=== PATIENT | male | born 1980 | race Caucasian/White ===

== ENCOUNTER → 2019-02-03 | Day surgery (SDC) | payer MEDICARE ==
[~2019-02-03] MED LIST: BUPIVACAINE 0.25% 30ML SDV INJ ONE; BUPIVACAINE HCL 0.5% INJ 30 ML VIAL INJ ONE; LEVOTHYROXINE75 MCG PO; LEXAPRO10 MG PO; METHADONE HCL10 MG PO; POTASSIUM CHLO20 ME1 PO; REXULTI PO
--- OUTSIDE RECORDS SUMMARY | 2019-02-03 10:52 | XMS REPORT ---
Author Author [facility] Address Unknown Phone Unavailable Care Team Providers Care Microbiological Laboratory Technician Name Role Phone Unavailable Unavailable Payers Payer Name Policy Type Policy Number Effective Date Expiration Date Problems This patient has no known problems. Allergies, Adverse Reactions, Alerts Allergy Name Allergy Type Status Severity Reaction(s) Onset Date Inactive Date Treating Clinician Comments No Known Allergies DA Active U 2012-02-27 00:00:00 Medications This patient has no known medications. Results Test Description Test Time Test Comments Text Results Atomic Results Result Comments - US ABDOMEN LTD 2019-01-27 11:08:00 Name: GUILLERMO ARMENTA [facility] : 1980 Age/S: 38 / M [address] [place] [address] Unit #: [id number] Loc: [place] [address] Phys: Zelalem Toscano MD Acct: [id number] Dis Date: Status: REG CLI PHONE #: [phone] Exam Date: 01/27/2019 1048 FAX #: [phone] Reason: R10.13 EPIGASTRIC PAIN EXAMS: CPT CODE: [id number] US ABDOMEN LTD [id number] Patient: GUILLERMO ARMENTA. : 1980; Age: 38 years; Gender: Male. MR: [id number]. Ordering physician: Zelalem Toscano MD. PROCEDURE: LIMITED ABDOMINAL ULTRASOUND. INDICATION: Epigastric abdominal pain for 3 weeks. COMPARISON: None. TECHNIQUE: Sonographic evaluation of the right upper quadrant of the abdomen was performed with supplemental color Doppler. FINDINGS: LIVER: The liver is normal in size, contour and morphology with normal parenchymal echogenicity. GALLBLADDER: Gallbladder is distended with sludge and gallstones. No gallbladder wall thickening, pericholecystic fluid/edema or sonographic Bauer's sign. BILE DUCTS: No biliary dilatation. The common duct measures 7.1 mm. PANCREAS: The visualized pancreas appears normal. RIGHT KIDNEY: The right kidney measures 11.3 cm in length. Normal contour and parenchymal echogenicity. There is no hydronephrosis, nephrolithiasis, mass lesion or perinephric collection. INFERIOR VENA CAVA: Visualized portions appear normal. Additional comments: None. IMPRESSION: 1. Gallbladder is distended with sludge and gallstones. No evidence of acute cholecystitis. 2. Remainder right upper quadrant is unremarkable. SL: [id number] PAGE 1 Signed Report (CONTINUED) Name: GUILLERMO ARMENTA [facility] : 1980 Age/S: 38 / M [address] [place] [address] Bl Unit #: [id number] Loc: [place] [address] Phys: Zelalem Toscano MD Acct: [id number] Dis Date: Status: REG CLI PHONE #: [phone] Exam Date: 01/27/2019 1048 FAX #: [phone] Reason: R10.13 EPIGASTRIC PAIN EXAMS: CPT CODE: [id number] ABDOMEN [facility] [id number] <Continued> at 1108 Reported and signed by: Nimesh Haro M.D. CC: Aubrey Toney MD; Zelalem Toscano MD Technologist: Janice Moreno RDMS(BR)(AB) Trnscb Date/Time: 01/27/2019 (1108) [id number] Orig Print D/T: S: 01/27/2019 (1111) Probe: PAGE 2 Signed Report
[2019-02-03 12:11] LABS: BASOPHILS % 0.3 % (0.0-1.0); EOSINOPHILS # (AUTO) 0.1 (0.0-0.4); EOSINOPHILS % 1.7 % (0.0-6.0); HEMATOCRIT 31.8 % (38.2-49.6); HEMOGLOBIN 10.1 g/dL (14.0-18.0); LYMPHOCYTES % 25.8 % (18.0-39.1); MEAN CORPUSCULAR HEMOGLOBIN 33.3 pg (28-32); MEAN CORPUSCULAR HGB CONC 31.8 g/dL (31-35); MONOCYTES # (AUTO) 0.5 (0.2-0.8); NEUTROPHILS # (AUTO) 5.1 (2.1-6.9); NEUTROPHILS % 65.7 % (38.7-80.0); PLATELET COUNT 203 x10e3/uL (140-360); RED BLOOD COUNT 3.03 x10e6/uL (4.3-5.7); RED CELL DISTRIBUTION WIDTH 15.3 % (11.7-14.4)
[2019-02-03 12:34] LABS: ANION GAP 11.5 mmol/L (8-16); CALCIUM 8.5 mg/dL (8.4-10.2); CREATININE, SERUM 1.36 mg/dL (0.72-1.25)
[2019-02-03 12:43] LABS: POTASSIUM 2.5 mmol/L (3.5-5.1)
== END | disposition home or self-care (01) ==
LOC: OR 10:50
PROVIDERS: ATTEND Surgery
DX: Z53.9 Procedure and treatment not carried out, unspecified reason (principal); K81.1 Chronic cholecystitis
CPT/HCPCS: 36415; 80048; 85025

== ENCOUNTER → 2019-02-17 | Day surgery (SDC) | payer MEDICARE ==
[~2019-02-17] MED LIST changes: -BUPIVACAINE HCL 0.5% INJ 30 ML VIAL INJ ONE; +DEXAMETHASONE SOD PHOS INJ 4 MG/ML VIAL ONE; +FENTANYL CITRATE/PF 100MCG/2 ML INJ ONE; +HYDROMORPHONE 2MG/ML 2 MG/ML ML ONE; +LEXAPRO20 MG PO; +LIDOCAINE HCL 2% JELLY 5 ML TUBE ONE; +LIDOCAINE HCL 2% LOCAL INJ 5 ML SDV VIAL INJ ONE; +MIDAZOLAM HCL 2 MG/2 ML VIAL ONE; +ONDANSETRON HCL INJ 2MG/ML 2ML 2 MG/ML VIAL ONE; +PROPOFOL IV EMULSION 10 MG/ML 20 ML VIAL ONE; +ROCURONIUM BROMIDE 10 MG/ML 5ML VIAL ONE; +SEVOFLURANE INHAL SOLN 250 ML PEN BTL ONE; +SODIUM CHLORIDE 0.9% INJ 10 ML VIAL ONE; +SPIRONOLACTONE25 MG PO
[2019-02-17 14:20] VITALS: BP 124/74
--- NOTE | 2019-02-17 15:39 | Operative Report ---
DATE OF PROCEDURE: 02/17/2019 SURGEON: Zelalem Toscano MD PREOPERATIVE DIAGNOSIS: Chronic cholecystitis. POSTOPERATIVE DIAGNOSIS: Chronic cholecystitis. PREOPERATIVE INDICATION: Treat disease, prevent biliary related complications. PROCEDURES: 1. Laparoscopic cholecystectomy. 2. Application of human connective tissue allograft to augment damaged tissues (CPT 35550, product code [id number]). ANESTHESIA: General. GEOTHERMAL INSTALLER: Joel Javier, surgical services asst (needed due to complexity of case). FLUIDS: 500 mL of crystalloid. EBL: 30 mL. DRAINS: None. COMPLICATIONS: None. SPECIMEN: Gallbladder. GRAFTS: Connective tissue allograft on the incision sites. FINDINGS: Gallbladder wall thickening, chronic gallbladder inflammation. PROCEDURE IN DETAIL: The patient was brought to the operating room and was intubated under general endotracheal anesthesia. He was sterilely prepped and draped in the usual fashion. A preprocedure pause was performed identifying the patient, use of perioperative antibiotics, intended procedure, and staff surgeon. Access was gained via a 5 mm left subcostal incision using a Veress needle. Abdomen was insufflated. Three additional trocars were placed in the standard position. The gallbladder was grasped at the fundus and retracted cephalad and to the right of the liver, the gallbladder was extremely dilated and distended with full of bile. I decompressed this with a needle decompressing device in order for us to be able to grasp the gallbladder more functionally. I then dissected out the cystic duct and was able to clip this twice in a space I want on the specimen side and divided this with scissors. This was done while obtaining the critical view of dissection. Multiple branches of the cystic artery were ligated with electrocautery using the L hook, also a large branch of the cystic artery was ligated with two clips and divided. The gallbladder was then excised off the gallbladder fossa using electrocautery. Of note, there was a lot of edema and gallbladder wall thickening, which made the dissection somewhat difficult. The gallbladder was then removed through the periumbilical port site with EndoCatch bag and sent off to pathology. The large port site was closed with 0-Vicryl suture using a Simone-Edith technique. We then verified hemostasis, removed the trocars and desufflated the abdomen. Incision sites were closed with 4-0 Monocryl suture in a subcuticular fashion. The connective tissue allograft was applied to the incision sites to allow proper healing and to prevent hypertrophic scar formation. We also used a 0.25% bupivacaine at the preperitoneal incision sites for local anesthesia. Dermabond dressings were applied. The patient tolerated the procedure well. Type of wound is type 2, clean and contaminated. MD ABDIAZIZ Solis/DENISHA /[id number]
== END | disposition home or self-care (01) ==
LOC: OR 10:07
PROVIDERS: ATTEND Surgery
DX: K81.1 Chronic cholecystitis (principal); J45.909 Unspecified asthma, uncomplicated; G47.33 Obstructive sleep apnea (adult) (pediatric); I10 Essential (primary) hypertension; E03.9 Hypothyroidism, unspecified; K21.9 Gastro-esophageal reflux disease without esophagitis; N20.0 Calculus of kidney; F41.9 Anxiety disorder, unspecified; F32.9 Major depressive disorder, single episode, unspecified; F17.210 Nicotine dependence, cigarettes, uncomplicated
CPT/HCPCS: 47562; 88304; C1766; J1100; J1170; J2001 ×2; J2250; J2405; J2704; Q4100; J3010